=== PATIENT | male | born 1965 | race Caucasian/White ===

== ENCOUNTER 2021-06-26 10:06 | Inpatient (IN) | payer OTHER ==
[2021-06-26] MEDS ORDERED: BISMUTH SUBSALICYLATE 262 MG/15 ML BTL PO PRN (11:14)
[2021-06-26] MEDS ORDERED: ONDANSETRON *ODT* 4 MG TABLET SL PRN (11:14)
[2021-06-26] MEDS ORDERED: chlordiazePOXIDE HCL 25 MG CAPSULE PO PRN (11:14)
[2021-06-26] MEDS ORDERED: ACETAMINOPHEN 325 MG TABLET (FP) PO PRN (11:14)
[2021-06-26] MEDS ORDERED: MAGNESIUM CITRATE 300 ML BOTTLE PO PRN (11:14)
[2021-06-26] MEDS ORDERED: MAG HYDROX/AL HYDROX/SIMETH 30 ML UNIT-DOSE CUP PO PRN (11:14)
[2021-06-26] MEDS ORDERED: METHOCARBAMOL 500 MG TABLET PO PRN (11:14)
[2021-06-26] MEDS ORDERED: NICOTINE 10 MG CARTRIDGE (INHALER) IH PRN (11:14)
[2021-06-26] MEDS ORDERED: MAGNESIUM HYDROX 2400MG/30ML ORAL SUSPENSION 30 ML CUP PO PRN (11:14)
[2021-06-26] MEDS ORDERED: MENTHOL/PHENOL 1 EACH UD MM PRN (11:14)
[2021-06-26 11:38] VITALS: BMI 26.5
[2021-06-26] MEDS: hydrOXYzine PAMOATE 25 MG CAPSULE (FP) PO SCH ×3 (13:36→22:20)
[2021-06-26 17:06] LABS: HEMATOCRIT 39.8 % (35.4-49); MCH 28.1 pg (25.7-33.7); MCHC 32.7 g/dl (32.0-35.9); MEAN CELL VOLUME 85.9 fl (80-96); MEAN PLT VOLUME 9.2 fl (7.5-11.1); PLATELET COUNT 219 10^3/uL (134-434); RBC 4.63 M/mm3 (4.00-5.60); RDW 15.8 % (11.9-15.9); WHITE BLOOD COUNT 10.2 K/mm3 (4.0-10.0)
[2021-06-26 17:10] LABS: ALBUMIN 3.8 g/dl (3.4-5.0); CALCIUM 8.8 mg/dL (8.5-10.1)
[2021-06-26 17:11] LABS: BLOOD UREA NITROGEN 21.3 mg/dL (7-18)
[2021-06-26 17:14] LABS: CREATININE 0.9 mg/dL (0.55-1.3)
[2021-06-26 17:15] LABS: BILIRUBIN,TOTAL 0.2 mg/dL (0.2-1); TOT PROT 7.2 g/dl (6.4-8.2)
[2021-06-26] MEDS: chlordiazePOXIDE HCL 25 MG CAPSULE PO SCH ×2 (18:14→22:19)
[2021-06-26] MEDS: QUEtiapine FUMARATE 100 MG TABLET (FP) PO SCH (22:18)
[2021-06-26] MEDS: MELATONIN 5 MG TABLETS PO SCH (22:20)
[2021-06-26] MEDS: THIAMINE HCL 100 MG TABLET (FP) PO SCH (22:20)
[2021-06-27] MEDS: chlordiazePOXIDE HCL 25 MG CAPSULE PO SCH ×4 (05:41→22:15)
[2021-06-27] MEDS: hydrOXYzine PAMOATE 25 MG CAPSULE (FP) PO SCH ×5 (05:41→22:15)
[2021-06-27] MEDS: PRENATAL VITAMINS W/ FOLIC ACID TABLET (FP) PO SCH (10:18)
[2021-06-27] MEDS: ACETAMINOPHEN 325 MG TABLET (FP) PO PRN (10:19)
[2021-06-27] MEDS: MELATONIN 5 MG TABLETS PO SCH (22:15)
[2021-06-27] MEDS: QUEtiapine FUMARATE 100 MG TABLET (FP) PO SCH (22:15)
[2021-06-27] MEDS: THIAMINE HCL 100 MG TABLET (FP) PO SCH (22:15)
[2021-06-28] MEDS: chlordiazePOXIDE HCL 25 MG CAPSULE PO SCH ×4 (06:19→22:31)
[2021-06-28] MEDS: hydrOXYzine PAMOATE 25 MG CAPSULE (FP) PO SCH ×5 (06:20→22:31)
[2021-06-28] MEDS: PRENATAL VITAMINS W/ FOLIC ACID TABLET (FP) PO SCH (11:19)
[2021-06-28] MEDS: IBUPROFEN 400 MG TABLET (FP) PO PRN ×2 (11:20→22:32)
[2021-06-28] MEDS: QUEtiapine FUMARATE 100 MG TABLET (FP) PO SCH (22:31)
[2021-06-28] MEDS: MELATONIN 5 MG TABLETS PO SCH (22:31)
[2021-06-28] MEDS: THIAMINE HCL 100 MG TABLET (FP) PO SCH (22:31)
[2021-06-29] MEDS ORDERED: chlordiazePOXIDE HCL 10 MG CAPSULE PO PRN
[2021-06-29] MEDS: chlordiazePOXIDE HCL 10 MG CAPSULE PO SCH ×3 (06:00→10:24)
[2021-06-29] MEDS: hydrOXYzine PAMOATE 25 MG CAPSULE (FP) PO SCH ×5 (06:01→22:22)
[2021-06-29] MEDS: PRENATAL VITAMINS W/ FOLIC ACID TABLET (FP) PO SCH (10:24)
[2021-06-29] MEDS ORDERED: LORazepam 0.5 MG TABLET PO PRN (15:10)
[2021-06-29] MEDS: LORazepam 1 MG TABLET PO SCH ×2 (17:45→22:21)
[2021-06-29] MEDS: ACETAMINOPHEN 325 MG TABLET (FP) PO PRN (17:46)
[2021-06-29] MEDS: QUEtiapine FUMARATE 100 MG TABLET (FP) PO SCH (22:22)
[2021-06-29] MEDS: THIAMINE HCL 100 MG TABLET (FP) PO SCH (22:22)
[2021-06-29] MEDS: MELATONIN 5 MG TABLETS PO SCH (22:22)
[2021-06-30] MEDS ORDERED: chlordiazePOXIDE HCL 10 MG CAPSULE PO SCH (05:00)
[2021-06-30] MEDS: LORazepam 0.5 MG TABLET PO SCH ×2 (06:12→10:19)
[2021-06-30] MEDS: hydrOXYzine PAMOATE 25 MG CAPSULE (FP) PO SCH ×5 (07:33→22:16)
[2021-06-30] MEDS: PRENATAL VITAMINS W/ FOLIC ACID TABLET (FP) PO SCH (10:19)
[2021-06-30] MEDS: IBUPROFEN 400 MG TABLET (FP) PO PRN (18:31)
[2021-06-30] MEDS: THIAMINE HCL 100 MG TABLET (FP) PO SCH (22:15)
[2021-06-30] MEDS: QUEtiapine FUMARATE 100 MG TABLET (FP) PO SCH (22:16)
[2021-06-30] MEDS: MELATONIN 5 MG TABLETS PO SCH (22:16)
[2021-07-01] MEDS ORDERED: chlordiazePOXIDE HCL 10 MG CAPSULE PO ONE (05:00)
[2021-07-01] MEDS: hydrOXYzine PAMOATE 25 MG CAPSULE (FP) PO SCH ×2 (05:19→10:15)
[2021-07-01] MEDS: IBUPROFEN 400 MG TABLET (FP) PO PRN (05:20)
[2021-07-01] MEDS ORDERED: LORazepam 0.5 MG TABLET PO ONE (06:00)
[2021-07-01 08:43] VITALS: BP 110/74; PULSE 90; TEMP 97.1
[2021-07-01] MEDS: PRENATAL VITAMINS W/ FOLIC ACID TABLET (FP) PO SCH (10:15)
== END 2021-07-01 11:58 | disposition other institution (70) | DRG 775 ==
LOC: YASAS 10:06 → Y3N 12:24
PROVIDERS: ADMIT Allergy & Immunology; ATTEND Allergy & Immunology
PROC: HZ2ZZZZ Detoxification Services for Substance Abuse Treatment (ICD-10-PCS; principal; 2021-06-26)
DX: F10.230 Alcohol dependence with withdrawal, uncomplicated (principal); F12.20 Cannabis dependence, uncomplicated; F17.210 Nicotine dependence, cigarettes, uncomplicated; F31.9 Bipolar disorder, unspecified; F19.24 Other psychoactive substance dependence with psychoactive substance-induced mood disorder; E78.5 Hyperlipidemia, unspecified; I10 Essential (primary) hypertension; G47.00 Insomnia, unspecified; M13.861 Other specified arthritis, right knee; M13.832 Other specified arthritis, left wrist; M13.831 Other specified arthritis, right wrist; R73.9 Hyperglycemia, unspecified; R79.89 Other specified abnormal findings of blood chemistry
CPT/HCPCS: 36415; 71046-TC-FY; 80053; 85027; 86780; 93005; 93010; C9803; U0003; U0005